=== PATIENT | male | born 1960 | race Caucasian/White ===

== ENCOUNTER → 2018-09-17 | Outpatient (CLI) | payer MEDICAID | END | disposition home or self-care (01) | LOC: SHCH 15:24 | PROVIDERS: ATTEND Internal Medicine Cardiovascular Disease | DX: I11.9 Hypertensive heart disease without heart failure (principal); I70.291 Other atherosclerosis of native arteries of extremities, right leg | CPT/HCPCS: 93306; 93925 ==